=== PATIENT | female | born 1960 | race Caucasian/White ===

== ENCOUNTER 2021-01-22 08:19 | Emergency (ER) | payer BC ==
[~2021-01-22] VITALS: Ht 162.6 cm; Wt 81.6 kg
[2021-01-22 08:20] VITALS: BP_SYST 145
--- NOTE | 2021-01-22 08:22 | NUR ---
BROUGHT BACK TO BED #6 AND TRIAGED. REPORT GIVEN TO FIDEL
--- NOTE | 2021-01-22 08:27 | NUR ---
dr escobar at bedside
[2021-01-22] MEDS ORDERED: KETOROLAC TROMETHAMINE 60 MG/2 ML VIAL IM ONE (08:30)
[2021-01-22 08:57] LABS: BASOPHILS % (AUTO) 0.7 % (0.0-2.0); EOSINOPHILS # (AUTO) 0.2 K/uL (0.0-0.4); EOSINOPHILS % (AUTO) 4.6 % (0.0-4.0); HEMATOCRIT 37.6 % (36-48); HEMOGLOBIN 12.9 g/dL (12.0-16.0); LYMPHOCYTES % (AUTO) 20.4 % (20.5-51.5); MEAN CORPUSCULAR HEMOGLOBIN 30 pg (27-31); MEAN CORPUSCULAR HGB CONC 34 % (32-36); MEAN CORPUSCULAR VOLUME 88 fL (79.0-98.0); MONOCYTES # (AUTO) 0.4 K/uL (0.0-1.0); MONOCYTES % (AUTO) 7.2 % (1.7-9.3); NEUTROPHILS # (AUTO) 3.3 K/uL (1.8-7.7); NEUTROPHILS % (AUTO) 67.1 % (40.0-70.0); PLATELET COUNT (AUTO) 220 K/uL (130-430); RED BLOOD CELL COUNT(AUTO) 4.26 MIL/uL (4.2-6.2); RED CELL DISTRIBUTION WIDTH 12.9 % (9.0-15.0)
[2021-01-22 09:08] LABS: CALCIUM 8.3 mg/dL (8.4-11.0); CREATININE 0.88 mg/dL (0.55-1.30); POTASSIUM 4.1 mmol/L (3.5-5.1)
[2021-01-22 09:11] LABS: INR 0.9 (0.8-1.2); PROTHROMBIN TIME 9.6 SECS (9.5-12.5)
[2021-01-22 09:12] LABS: ALBUMIN 3.7 g/dL (3.4-4.8); C-REACTIVE PROTEIN QUANT 0.7 mg/dL (0-0.5); TOTAL BILIRUBIN 0.3 mg/dL (0.0-1.0)
[2021-01-22] MEDS ORDERED: IBUP-1969 PO (09:34)
[2021-01-22] MEDS ORDERED: HYDR-3917 PO (09:34)
[2021-01-22 09:47] VITALS: BP_SYST 123
--- NOTE | 2021-01-22 09:48 | NUR ---
Patient given written and verbal discharge instructions and verbalizes understanding. SHANNON escobar MD discussed with patient the results and treatment provided. Patient in stable condition. ID arm band removed. Rx of motrin, hydrocodone given. Patient educated on pain management and to follow up with PMD. Pain Scale 1. Opportunity for questions provided and answered. Medication side effect fact sheet provided.
== END 2021-01-22 09:48 | disposition home or self-care (01) ==
LOC: SED 08:19
DX: K80.50 Calculus of bile duct without cholangitis or cholecystitis without obstruction (principal)
CPT/HCPCS: 36415; 74176; 76376; 80053; 81002; 81025; 82150; 83605; 83690; 84484; 84703; 85025; 85610; 85730; 86140; 96372; 99284; J1885